=== PATIENT | male | born 1970 | race Caucasian/White ===

== ENCOUNTER 2023-04-01 13:53 | Outpatient (REF) | payer BC, SELFPAY ==
--- NOTE | ~2023-04-01 | US_ITS ---
EXAMINATION: US EXTRACRANIAL CAROTID DUPLEX, BILATERAL CLINICAL INFORMATION: Expressive dysphagia. COMPARISON: None available. TECHNIQUE: Real-time ultrasound and Doppler techniques (integrating B-mode 2-D vascular images, Doppler spectral analysis and color-flow Doppler imaging) were utilized to interrogate the extracranial carotid arteries, the vertebral arteries and proximal subclavian arteries bilaterally. The degree of stenosis is determined by criteria similar to NASCET. FINDINGS: Right Side: 1. There is mild atherosclerotic plaque seen in the bifurcation/proximal ICA region. 2. The common carotid artery PSV proximally is 140 cm/s and distally 106 cm/s. 3. The proximal internal carotid artery velocities are 77 cm/s systolic and 28 cm/s diastolic. 4. The proximal external carotid artery PSV is 117 cm/s. 5. The vertebral artery shows antegrade flow. 6. The subclavian artery waveforms are normal. Left Side: 1. There is mild atherosclerotic plaque seen in the bifurcation/proximal ICA region. 2. The common carotid artery PSV proximally is 170 cm/s and distally 117 cm/s. 3. The proximal internal carotid artery velocities are 86 cm/s systolic and 29 cm/s diastolic. 4. The proximal external carotid artery PSV is 90 cm/s. 5. The vertebral artery shows antegrade flow. 6. The subclavian artery waveforms are normal. US/US carotid duplex BI IMPRESSION: 1. RIGHT: Minimal, non-hemodynamically significant stenosis of the proximal right internal carotid artery corresponding to a 0-49% stenosis by velocity criteria. 2. LEFT: Minimal, non-hemodynamically significant stenosis of the proximal left internal carotid artery corresponding to a 0-49% stenosis by velocity criteria.
== END 2023-04-01 13:54 | disposition home or self-care (01) ==
LOC: HO.HMGCX 13:53
PROVIDERS: PCP Internal Medicine; Visit Provider Internal Medicine
DX: F80.1 Expressive language disorder (principal); I65.23 Occlusion and stenosis of bilateral carotid arteries
CPT/HCPCS: 93880

== ENCOUNTER → 2023-05-04 08:36 | Outpatient (REF) | payer BC, SELFPAY ==
--- NOTE | 2023-05-04 08:42 | CA_ITS ---
Transthoracic Echocardiogram Patient (Last, First, Middle): Rex Ann, Gender: Male Date of : 1970 Age: 52 Procedure Date: 05/04/2023 Procedure Type: Transthoracic Echocardiogram Location: OP Height: 157.48 cm Weight: 90.27 kg BSA: 1.91 m2 Heart Rate: bpm BP: 110 / 84 mmHg [employer]: ZAHRA Referring MD: Cornelius Wilkins MD Window And Door Installer: Satish Menchaca MD Symptoms: I63.9 CEREBRAL INFARCTION Study Quality: Adequate ECG Rhythm: Sinus Conclusions: - 1. Suspect small PFO 2. Otherwise normal study Findings Left Ventricle Normal left ventricular size, thickness, and systolic function. The visually estimated ejection fraction is between 60-65%. Spectral Doppler is indicative of a normal filling pattern. Peak GLS is -15.3%, which is mildly reduced. Right Ventricle Normal right ventricular cavity size and systolic function. Atria The left atrium is likely dilated. Contrast study for right to left shunting is negative. Contrast study for right to left shunting is mildly positive with Valsalva maneuver. There is shunt reversal with the release phase of the Valsalva maneuver. The right atrium is normal in size. Aortic Valve Normal aortic valve structure and function. There is no aortic valve stenosis. There is no aortic valve regurgitation. Mitral Valve Normal mitral valve structure and function. There is trace mitral valve regurgitation. There is no mitral valve stenosis. Pulmonic Valve The pulmonic valve is likely normal. Tricuspid Valve Normal tricuspid valve structure. There is mild tricuspid valve regurgitation. The right ventricular systolic pressure is normal. The right ventricular systolic pressure is 20 mmHg. Normal right atrial pressure. There is no evidence of pulmonary hypertension. Great Vessels All visible segments of the aorta are normal in size. The pulmonary artery was not well visualized. Venous The inferior vena cava is normal in size and collapses greater than 50% with inspiration. Pericardium/Pleural There is no evidence of pericardial effusion. Prior Study Comparison No prior study available for comparison. delay in reporting due to technical issues Recommendations, Care & Conclusions Recommend a JOSE. Measurements 2D Linear Measurements IVSd: 1.11 0.6-0.9/0.6-1.0 cm LVIDd: 4.10 3.9-5.3/4.2-5.9 cm LVIDd Index: 2.15 2.4-3.2/2.2-3.1 cm/m2 LVIDs: 2.71 2.0-3.6 cm LVPWd: 1.19 0.7-1.1 cm LA Diam: 3.90 2.7-3.8/3.0-4.0 cm LAIDs Index: 2.04 1.5-2.3 cm/m2 LV Mass: 200.95 67-162/88-224 g LV Mass Index: 105.21 43-95/49-115 g/m2 LVOT Diam: 2.10 3.0+(-)1.3 cm 2D Systolic Function EF 4C: 59.50 >55% EF 2C: 61.30 >55% EF BiP: 60.50 >55% Mitral Valve MV Pk E: 0.63 MV PK A: 0.46 MV Decel Time: 239.00 E/A: 1.40 E'Lateral: 12.10 E'Medial: 8.70 E/E' Med: 7.20 E/E' Lat: 5.20 PHT: 70.00 MVA PHT: 3.14 Decel Nicholas: 2.62 Aortic Valve AoV Pk Tim: 1.54 AoV Mn Tim: 1.07 AoV VTI: 0.33 AoV Pk Grad: 9.00 Aov Mn Grad: 5.00 LIZ Cont.VTI: 1.95 LVOT LVOT Pk Tim: 0.91 LVOT Mn Tim: 0.59 LVOT VTI: 0.19 LVOT Pk Grad: 3.00 LVOT Mn Grad: 2.00 LVOT Diam: 2.10 LVOT Area: 3.46 Diastolic Function MV Pk E: 0.63 MV Pk A: 0.46 E/A: 1.40 E'Medial: 8.70 E/E' Med: 7.20 E' Laterial: 12.10 E/E' Lat: 5.20 Right Ventricle TAPSE (mm): 22.80 TVS' Tim: 11.50 Tricuspid Valve TR Pk Tim: 2.06 TR Pk Grad: 17.00 RA Press: 3.00 RVSP: 20.00 Great Vessels Aorta Sinus of Valsalva: 3.12 2.0-3.[address] [place]: 2.20 1.7-3.4 cm Ao Asc: 2.80 2.1-3.4 cm Updated in Other Vendor System with Status of Final Satish Menchaca MD electronically signed on 05/07/2023 12:52:51 PM with status of Final
== END ==
LOC: HO.CARD 08:36
PROVIDERS: PCP Internal Medicine; Visit Provider Internal Medicine
DX: I63.9 Cerebral infarction, unspecified (principal)
CPT/HCPCS: 93306; 93356

== ENCOUNTER → 2023-05-04 08:42 | Outpatient (BNV) | payer BC, SELFPAY | PROVIDERS: PCP Internal Medicine; Visit Provider Internal Medicine Cardiovascular Disease | DX: I36.1 Nonrheumatic tricuspid (valve) insufficiency (principal) | CPT/HCPCS: 93306 ==

== ENCOUNTER 2023-05-21 09:21 | Outpatient (REF) | payer BC, SELFPAY ==
--- NOTE | ~2023-05-21 | MR_ITS ---
EXAMINATION: MR BRAIN WITHOUT CONTRAST CLINICAL INFORMATION: Expressive dysphasia. COMPARISON: None. TECHNIQUE: Multiplanar, multisequence imaging of the brain was performed without contrast. Slightly limited study with motion artifacts. FINDINGS: No diffusion abnormalities are identified to suggest an acute infarct. The ventricles are normal in size. No mass effect or midline shift is seen. A few subcentimeter foci of T2 hyperintense signal change in the bifrontal white matter are entirely nonspecific. No extra-axial fluid collections are seen. The brainstem and cerebellum are normal. The gradient refocused acquisition is normal. The craniovertebral junction, marrow signal, and midline structures are normal. The major intracranial flow voids at the level of the [place] of [place] are preserved. The dural venous sinus flow voids are maintained. The mastoid air cells are well aerated. Mild right ethmoid sinus mucosal thickening noted. MR/MR head/brain wo con IMPRESSION: No acute intracranial process. Minimal bifrontal white matter signal changes which are nonspecific.
== END 2023-05-21 09:22 | disposition home or self-care (01) ==
LOC: HO.MRI 09:21
PROVIDERS: PCP Internal Medicine; Visit Provider Internal Medicine
DX: F80.1 Expressive language disorder (principal)
CPT/HCPCS: 70551